=== PATIENT | male | born 1955 | race Caucasian/White ===

== ENCOUNTER 2016-04-10 19:42 | Emergency (ER) | payer OTHER ==
[~2016-04-10] VITALS: Ht 154.9 cm; Wt 66.5 kg
[~2016-04-10 19:42] MED LIST: AMOX1TAB10 PO; NAPR-260 PO
[2016-04-10 20:32] VITALS: Ht 154.9 cm; Wt 66.5 kg
[2016-04-10 21:00] VITALS: PULSE 99; TEMP 98.8
[2016-04-10] MEDS ORDERED: FLUORESCEIN STRIP BOTH EYES ONE (21:00)
[2016-04-10] MEDS ORDERED: PROPARACAINE 0.5% 15 ML OPH BOTH EYES ONE (21:00)
--- NOTE | 2016-04-10 21:10 | ERD ---
ER Documentation Chief Complaint Date/Time DATE: 04/10/16 TIME: 21:07 Chief Complaint RIGHT EYE PAIN, REPORTED STINGING X 3 MONTHS HPI 60-year-old male presents to emergency department for complaints of bilateral eye redness and stinging sensation for 3 months, patient was seen by an help desk support specialist one month and half ago, was found to possibly have keratitis. She is not taking her medication prescribed, patient has an appointment with help desk support specialist on April 30. Patient denies any foreign body sensation in the eye. Patient is here today because the pain got worse. Patient describes the pain as burning pain, 6/10 scale, accompanied with eye redness, denies any vision changes. A eyedrops to help with symptoms with only mild relief. Patient denies any fever or chills. Patient denies any trauma in the eye. Patient denies any headache or dizziness. ROS All systems reviewed and are negative except as per history of present illness. Medications Home Meds Active Scripts Naphazoline-Pheniramine* (Visine-A*) 15 Ml Drops, 2 DROP BOTH EYES Q4H Y for RED EYES, #1 BOT Prov:JIMMIE GUTIERREZ NP 04/10/16 Cetirizine Hcl* (Zyrtec*) 10 Mg Capsule, 10 MG PO DAILY, #30 TAB.CHEW Prov:JIMMIE GUTIERREZ NP 04/10/16 Tramadol HCl (Tramadol HCl) 50 Mg Tablet, 50 MG PO Q6 Y for PAIN, #20 TAB Prov:JIMMIE GUTIERREZ NP 04/10/16 Moxifloxacin Hcl* (Vigamox*) 0.5% - 3 Ml Opht, 1 DROP BOTH EYES TID for 7 Days, EA Prov:JIMMIE GUTIERREZ NP 04/10/16 Naproxen* (Naprosyn*) 500 Mg Tablet, 500 MG PO BID Y for PAIN AND/OR INFLAMMATION, #30 TAB Prov:STEVE HEIN PA-C 09/03/15 Amox Tr/Potassium Clavulanate (Amox Tr-K Clv 875-125 Mg Tab) 1 Tab Tablet, 1 TAB PO BID, #20 TAB Prov:STEVE HEIN PA-C 09/03/15 Allergies Allergies: Coded Allergies: No Known Allergy (Unverified , 09/26/13) PMhx/Soc Medical and Surgical Hx: pt denies Medical Hx, pt denies Surgical Hx History of Surgery: No Anesthesia Reaction: No Hx Neurological Disorder: No Hx Respiratory Disorders: No Hx Cardiac Disorders: No Hx Psychiatric Problems: No Hx Miscellaneous Medical Probl: No Hx Alcohol Use: No Hx Substance Use: No Hx Tobacco Use: No Smoking Status: Never smoker FmHx Family History: No coronary disease, No diabetes, No other Physical Exam Vitals Vital Signs Date Time Temp Pulse Resp B/P Pulse Ox O2 Delivery O2 Flow Rate FiO2 04/10/16 21:00 98.8 99 04/10/16 20:32 99.9 114 20 148/85 97 Physical Exam GENERAL: The patient is well developed and appropriate for usual state of health, in no apparent distress. HEENT: Atraumatic. bilateral eye conjunctiva noted to be erythematous. Bilateral eyes are PERRL EOM is clear Ears: Normal tympanic membrane, no erythema or bulging. No ear canal swelling. No ear discharge. Nose: normal nasal turbinates, no erythema or swelling. Normal nasal discharge. Throat: oropharynx clear. No tonsillar swelling or tonsillar exudates. No lymphadenopathy. CHEST: Clear to auscultation bilaterally. There are no rales, wheezes or rhonchi. HEART: Regular rate and rhythm. No murmurs, clicks, rubs or gallops. No S3 or S4. ABDOMEN: Soft, nontender and nondistended. Good bowel sounds. No rebound or guarding. No gross peritonitis. No gross organomegaly or masses. No Moses sign or McBurney point tenderness. BACK: No midline or flank tenderness. EXTREMITIES: Equal pulses bilaterally. There is no peripheral clubbing, cyanosis or edema. No focal swelling or erythema. Full range of motion. Grossly neurovascularly intact. NEURO: Alert and oriented. Cranial nerves 2-12 intact. Motor strength in all 4 extremities with 5/5 strength. Sensation grossly intact. Normal speech and gait. SKIN: There is no apparent rash or petechia. The skin is warm and dry. HEMATOLOGIC AND LYMPHATIC: There is no evidence of excessive bruising or lymphedema. No gross cervical, axillary, or inguinal lymphadenopathy. Results 24 hrs Current Medications Medications (Trade) Dose Ordered Sig/Porfirio Route PRN Reason Start Time Stop Time Status Last Admin Dose Admin Fluorescein Sodium (Bskxz-X-Nyofj) 1 strip ONCE ONCE BOTH EYES 04/10/16 21:00 2 21:01 DC Proparacaine HCl (Alcaine 0.5%) 1 drop ONCE ONCE BOTH EYES 04/10/16 21:00 2 21:01 Cancel Tetracaine HCl (Tetracaine 0.5% Oph) 1 drop ONCE ONCE BOTH EYES 04/10/16 22:00 04/10/16 22:01 Procedure Note: After obtaining informed consent, the _bilateral_ eye was stained using fluorescein dye. After staining the eye, A Wood's lamp was used to evaluate the eye. There is no foreign body noted in the eye. No corneal abrasions noted. Also bilateral eyes were anesthetized using tetracaine ophthalmic solution, both eye pressures were checked, 17 mmhg right eye is 17 mmhg left eye. Patient tolerated procedure well. Procedures/MDM Medical decision making: Patient's bilateral eye redness nonspecific at this time, possibly bacterial conjunctivitis or allergic conjunctivitis, nonspecific at this time, evaluation by help desk support specialist outpatient is appropriate, patient has an appointment with help desk support specialist on April 30, at this time, no symptoms of any eye emergencies, no herpes simplex virus, no vision changes, after putting tetracaine on the eyes, patient able to visualize well, feels much better. No foreign body in the eye, no corneal abrasions noted. Patient was given for tramadol for pain, Vigamox ophthalmic solution, Naphcon ophthalmic solution, is advised to see ophthalmology specialist as per appointment for further evaluation of symptoms. Patient was advised to return to emergency department for any worsening symptoms. Follow with primary care doctor in 2-3 days, patient has scheduled appointment with primary care doctor within 2-3 days. Departure Diagnosis: Primary Impression: Conjunctivitis Conjunctivitis type: unspecified Laterality: bilateral Qualified Code: H10.9 - Conjunctivitis of both eyes, unspecified conjunctivitis type Condition: Stable Additional Instructions: Patient was given for tramadol for pain, Vigamox ophthalmic solution, Naphcon ophthalmic solution, is advised to see ophthalmology specialist as per appointment for further evaluation of symptoms. JIMMIE GUTIERREZ NP Apr 10, 2016 21:09
[2016-04-10] MEDS ORDERED: TRAM50TA2 PO (21:58)
[2016-04-10] MEDS ORDERED: VIGA BOTH EYES (21:58)
[2016-04-10] MEDS ORDERED: NAPH15DR22 BOTH EYES (21:58)
[2016-04-10] MEDS ORDERED: CETI10CA PO (21:58)
[2016-04-10] MEDS ORDERED: TETRACAINE 0.5% 15 ML OPH BOTH EYES ONE (22:00)
== END 2016-04-10 22:29 | disposition home or self-care (01) ==
LOC: FTE 19:42
DX: H10.9 Unspecified conjunctivitis (principal)
CPT/HCPCS: Z7502; Z7610; 99284

== ENCOUNTER 2017-01-04 07:35 | Day surgery (SDC) | payer OTHER ==
[~2017-01-04] VITALS: Ht 154.9 cm; Wt 64.9 kg
[~2017-01-04 07:35] MED LIST changes: +CETI10CA PO; +NAPH15DR22 BOTH EYES; +TRAM50TA2 PO; +VIGA BOTH EYES
[2017-01-04] MEDS ORDERED: LIDOCAINE 4% SOLUTION 50 ML BTL ONE (08:31)
[2017-01-04 08:36] VITALS: Ht 154.9 cm; Wt 64.9 kg
[2017-01-04 08:44] VITALS: BP 119/80; PULSE 79; RESP 19
[2017-01-04] MEDS ORDERED: NO HOME MEDS (08:46)
[2017-01-04] MEDS ORDERED: MIDAZOLAM 1 MG/ML 2 ML INJ ONE ×2 (09:35)
[2017-01-04] MEDS ORDERED: FENTAnyl 50 MCG/ML VIAL ONE (09:35)
--- NOTE | 2017-01-04 09:47 | OPPN ---
Date/Time of Note Date/Time of Note DATE: 01/04/17 TIME: 09:39 Proc Note GI Procedure Date 01/04/17 Indication: screening/surveillance, diagnostic Pre-procedure Diagnosis h/o chronic heart burn screening colonoscopy Post-procedure Diagnosis gerd gr1 diffuse gastritis colon polyp 5mm in prof desg colon mimni hemorrhoids Procedure Performed: Endoscopy, Colonoscopy Surgeon see signature line [place] Patroller none Anesthesia Type: moderate sedation Tourniquet Time none EBL none Transfusion required none Biopsy 1: gastric esophageal colon polyp Grafts/Implants none Tubes/Drains none Complication(s) none Procedure Description egdv showed gerd and gastritis colon showed 5 mmsessile bpolyp in prox desg colon mini hemorrhoids external LUZ MONTOYA MD Jan 04, 2017 09:47
[2017-01-04 09:51] VITALS: BP 96/68; RESP 14
--- NOTE | 2017-01-08 07:41 | GILP ---
DATE OF PROCEDURE: PROCEDURE: Esophagogastroduodenoscopy. PREOPERATIVE DIAGNOSIS: The patient presenting with history of chronic heartburn unresponsive to ro utine [id number] therapy. Procedure performed to rule out gastroesophageal reflux disease, ru le out Martin's esophagus, rule out peptic ulcer disease. POSTOPERATIVE DIAGNOSES: Mild reflux esophagitis, [place] classification 1. Biopsies were done . Mild diffuse gastritis was noted. Biopsy was done to rule out Helicobacter pylori infection. DESCRIPTION OF PROCEDURE: After the informed written consent was obtained, the patient was asked to lie on the left lateral side, 2 mg Versed and 50 mcg of fentanyl was given as intravenous anesthesi a. When the patient became somnolent, the Olympus video upper endoscope was introduced into the orophar ynx, then into the esophagus. Several areas of erythema noted above the GE junction indicating mild reflux esophagitis. Biopsies were done to rule out Martin's esophagus. Scope at this time was ad vanced into the stomach. Entire stomach showed evidence of erythema, mostly in a patchy distributio n. Biopsy was done from the antrum, the lesser curvature and the fundus to rule out H. pylori infec tion. Scope at this time was advanced into the duodenum. Entire duodenum appeared normal with no m ucosal abnormality, no ulcer noted. Scope at this time was withdrawn and the procedure was terminat ed. PLAN: Recommend omeprazole 40 mg a day for 3 months. Dictated By: LUZ GLOVER/NTS Conf#: [id number] DID#: [id number] CC: Merna Diaz; LUZ MONTOYA MD;*End*
--- NOTE | 2017-01-08 07:44 | GILP ---
DATE OF PROCEDURE: PROCEDURE: Colonoscopy PREOPERATIVE DIAGNOSIS: Screening colonoscopy to rule out colon polyps. POSTOPERATIVE DIAGNOSES: 1. A 5 mm polyp noted in the proximal descending colon. This was removed with help of a cold biops y forceps. 2. Minimal external hemorrhoids. After informed written consent was obtained, the patient was asked to lie on the left lateral side. A total of 3 mg Versed and 75 mcg of fentanyl was given as intravenous anesthesia. When the patient became somnolent, Olympus video colonoscope was introduced into the rectum and adva nced all the way to the cecum. Entire colon appeared perfectly normal with no mucosal abnormality. Endoscope was withdrawn and a 5 mm raised polyp was noted in the proximal descending colon. This p olyp was removed with the help of a cold biopsy forceps. Rest of the colon was examined thoroughly. No additional abnormalities detected. On the way out, minimal external hemorrhoids were noted and the procedure was terminated. PLAN: Recommend wait for the pathology report and also recommend repeat colonoscopy between 3 and 5 years depending upon the pathology report. Dictated By: LUZ GLOVER/SAMY Conf#: [id number] DID#: [id number] CC: LUZ MONTOYA MD; Merna Diaz;*[facility]*
== END 2017-01-04 11:35 | disposition home or self-care (01) ==
LOC: GIL 07:35
PROVIDERS: ATTEND Internal Medicine Gastroenterology
DX: Z12.11 Encounter for screening for malignant neoplasm of colon (principal); D12.4 Benign neoplasm of descending colon; K29.50 Unspecified chronic gastritis without bleeding; K21.0 Gastro-esophageal reflux disease with esophagitis; K64.4 Residual hemorrhoidal skin tags
CPT/HCPCS: 43239; 45380; 88305; 88312; J2250; J3010; Z7610